=== PATIENT | male | born 1965 | race African-American/Black ===

== ENCOUNTER 2024-10-07 23:17 | Emergency (ER) | payer SELFPAY ==
[~2024-10-07] VITALS: Ht 175.3 cm; Wt 80.0 kg
[2024-10-07 23:22] VITALS: BP 154/111; PULSE 126; RESP 18; TEMP 98.9; O2SAT 97
[2024-10-07] MEDS ORDERED: DIPHENHYDRAMINE 50MG/ML VIAL IM ONE (23:45)
[2024-10-07] MEDS ORDERED: HALOPERIDOL LACTATE 5MG/ML VIAL IM ONE (23:45)
[2024-10-07] MEDS ORDERED: LORAZEPAM 2MG/ML INJ IM ONE (23:45)
== END 2024-10-08 01:36 | disposition left against medical advice (07) ==
LOC: ER 23:17
DX: F10.129 Alcohol abuse with intoxication, unspecified (principal); Z95.810 Presence of automatic (implantable) cardiac defibrillator; Y90.9 Presence of alcohol in blood, level not specified
CPT/HCPCS: 93005; 99283